=== PATIENT | male | born 1985 | race Caucasian/White ===

== ENCOUNTER 2021-02-22 23:25 | Emergency (ER) | payer SELFPAY | END 2021-02-23 00:08 | disposition left against medical advice (07) | LOC: JD.ED 23:25 | DX: Z53.21 Procedure and treatment not carried out due to patient leaving prior to being seen by health care provider (principal) ==

== ENCOUNTER 2021-11-14 19:20 | Emergency (ER) | payer SELFPAY | END 2021-11-14 21:13 | disposition home or self-care (01) | LOC: JD.ED 19:20 | DX: S05.01XA Injury of conjunctiva and corneal abrasion without foreign body, right eye, initial encounter (principal); W22.09XA Striking against other stationary object, initial encounter | CPT/HCPCS: 99283 ==

== ENCOUNTER 2021-12-07 09:00 | Emergency (ER) | payer SELFPAY ==
[2021-12-07] MEDS ORDERED: HYDROmorphone 0.5 MG/0.5 ML Syringe IVPUSH ONE (09:13)
[2021-12-07] MEDS ORDERED: Lactated Ringers 1,000 ML IV SCH (09:15)
[2021-12-07] MEDS ORDERED: Diphtheria,Pertussis(Acell),Tetanus Vaccine 0.5 ML Syringe IM ONE (09:54)
[2021-12-07] MEDS: Sulfamethoxazole/Trimethoprim 800-160 MG Tab PO ONE ×2 (14:21→14:22)
== END 2021-12-07 15:41 | disposition home or self-care (01) ==
LOC: JD.ED 09:00
DX: S37.33XA Laceration of urethra, initial encounter (principal); Z23 Encounter for immunization; W20.8XXA Other cause of strike by thrown, projected or falling object, initial encounter; Y99.0 Civilian activity done for income or pay
CPT/HCPCS: 36415; 80053; 81001; 85025; 90471; 90715; 96361; 96374; 99283; A9270; J1170; J7120